=== PATIENT | female | born 1990 ===

== ENCOUNTER 2016-10-30 20:52 | Emergency (ER) | payer OTHER, SELFPAY ==
[2016-10-30 21:34] VITALS: BMI 31.6
[2016-10-30 21:53] LABS: RBC URINE 1 /hpf (0-3); URINE BACTERIA RARE (<OCC); URINE BILIRUBIN NEGATIVE (NEGATIVE); URINE BLOOD SMALL (NEGATIVE); URINE COLOR COLORLESS (YELLOW); URINE GLUCOSE (UA) NEG (Normal); URINE KETONE NEGATIVE (NEGATIVE); URINE LEUKOCYTE ESTERASE NEG Leu/uL (Negative); URINE PROTEIN NEGATIVE (NEGATIVE); URINE UROBILINOGEN 0.2-1.0 mg/dL (0.2-1.0); WBC URINE 1 /hpf (0-5)
--- NOTE | 2016-10-31 00:22 | OBHP ---
Datetime: 10/30/2016 21:35 IP Adm Impression: , intrauterine ; No Active Labor IP Admit Plan: Observation/Evaluation Admit Comment, IP Provider: 26 y/o @ 23.5 weeks presents with vaginal spotting. Pt reports one episode of light spotting around 19:00 today that has since subsided. Denies sexual activity or incit ing events. Associated with mild (3/10) suprapubic pain without urinary symptoms. No other complaints . Denies LOF/CTX and reports +FM. Denies fever/chills, headaches, visual disturbances, CP/SOB, back p ain, N/V/D/C, urinary symptoms. PMD: [facility] (next appt 11/06) : immigrated 1 week ago to [place], recieved care in [place]. POBhx: 1 SAB in 2015, unknown GA, uncomplicated PsurgHx: none PMHx: none Meds: PNVs Social: denies ETOH, Tobacco, drug use A/P: 26 y/o @ 23.5 weeks IUP, possible UTI. -pelvic exam unremarkable as per Dr. Cohen, no active bleeding -UA -case discussed and pt seen with Dr. Noel Gage MD PGY1 @ 21:[address] Cohen: I have evaluated the patient independently and I agree with the above. The patient is a @ 23.5 wks with vaginal spotting, no leaking, +FM, no ctxns. Fhr+ 150s, irritabi lity, on speculum exam no vaginal blood in the vault, UA negative. Patient discharged home, no eviden ce of labor. Labor precautions given, f/u in clinic at next appt Pelvic Type - PN: Adequate Extremities - PN: Normal Abdomen - PN: Normal Back - PN: Normal Breast - PN: Normal Lungs - PN: Normal Heart - PN: Normal Thyroid - PN: Normal Neurologic - PN: Normal HEENT - PN: Normal General - PN: Normal FHR - Baseline A Provider: 150 Membranes, Provider: Intact Contraction Comments Provider: no Comments, ACOG Physical Exam: pelvic: cervix closed, no active bleeding Vital Signs Provider: Reviewed; Within Normal Limits IP Chief Complaint: Vaginal bleeding Dilatation, Provider: 0 Effacement, Provider: 0 Genitourinary Exam: Normal DTRs - PN: Normal
--- NOTE | 2016-10-31 00:30 | OBDCSUM ---
Datetime: 10/30/2016 22:10 Discharged to, Provider: Home Follow up at, Provider: clinic on 11/06 Disch Instr Activity: Normal activity Disch Instr Diet: Regular Discharge Diet restrict Prov: rest in betwween Discharge Instructions, Provider: Routine instructions given Discharge Time: 10/30/2016 22:11 Follow up in weeks, Provider: as scheduled Disch Referrals: None Disch Activity Restrictions: No lifting; Minimize stair-climbing; No sexual activity; Nothing in vag jaime - [place], tampons, douche Discharge Diagnosis Prov Other: false labor
== END 2016-10-30 22:35 | disposition home or self-care (01) ==
LOC: H.EROB2 20:52
DX: O47.02 False labor before 37 completed weeks of gestation, second trimester (principal); Z3A.23 23 weeks gestation of pregnancy

== ENCOUNTER 2017-01-03 10:50 | Emergency (ER) | payer SELFPAY ==
--- NOTE | 2017-01-05 08:48 | OBHP ---
Datetime: 01/03/2017 11:17 IP Adm Impression: , intrauterine IP Admit Plan: Observation/Evaluation Admit Comment, IP Provider: 26 y/o @ 33.0 weeks presents with 5 day history of RUQ pain. Pt denies inciting event. Pain started gradually. It is intermittent, 5/10, nonradiating, alleviated wit h lying down and exacerbated with prolonged ambulation. No medication attempted. No association with meal consumption. Denies fever/chills, N/V/D/C, epigastric pain, headaches, changes in vision, CP/SOB /Palpitations. Denies VB/LOF/CTX and reports good FM. ROS: negative PMD: [facility] POBhx: 1 SAB in 2015, unknown GA, uncomplicated PsurgHx: none PMHx: none Meds: PNVs Social: denies ETOH, Tobacco, drug use PE: as above A/P: 26 y/o @ 33.0 weeks with RUQ pain -annabelle [place] in [place] -pt to have NST pt seen and case discussed with Dr. Cohen Addendum by Dr. Cohen: Patient evalauted independently and I agree with the above. Patient is a @ 33.0 wks with pain along lower rib cage. No vaginal bleedig, no ctxns, no leaking, +FM, pain is reproducible on deep palpation. Patient denies fever, N/V, diarrehea. FHR= 145 mod dorita, +accels, n o decels. TOCO = occasional contractions. Patient does not appear to be in labor or have signs of cho enma. Patient dishcarged home with labor precautions, pain most likjerrod costocondritis Pelvic Type - PN: Adequate Extremities - PN: Normal Abdomen - PN: Normal Back - PN: Normal Breast - PN: Normal Lungs - PN: Normal Heart - PN: Normal Thyroid - PN: Normal Neurologic - PN: Normal HEENT - PN: Normal General - PN: Normal FHR - Baseline A Provider: 145 Comments, ACOG Physical Exam: Eyes: sclera non-icteric, conjuctiva clear CVS: RRR, S1S2, no MRG LUNGS: CTA B/L, good air entry, No WRR Abd: +BS, soft, ND. no guarding/rigidity. Lam's negative. reproducible tenderness along right 1 2th rib. L ext: no pedal edema. EGA AdmitDate IP: 33.0 IP Chief Complaint: Other NICHD Variability Prov Fetus A: Moderate 6-25bpm NICHD Decel Fetus A IP Provider: None Genitourinary Exam: Normal DTRs - PN: Normal
[2017-01-05 12:48] VITALS: BP 120/81; PULSE 89; RESP 18; TEMP 98; O2SAT 100
== END 2017-01-03 15:24 | disposition home or self-care (01) ==
LOC: H.EROB2 10:50
DX: O26.893 Other specified pregnancy related conditions, third trimester (principal); R10.11 Right upper quadrant pain; R07.81 Pleurodynia; Z3A.33 33 weeks gestation of pregnancy

== ENCOUNTER 2017-02-11 05:21 | Inpatient (IN) | payer MEDICAID ==
[2017-02-11 07:32] VITALS: BMI 33.7
[2017-02-11] MEDS ORDERED: Lactated Ringer's 1,000 ML IV SCH (07:45)
[2017-02-11 10:57] LABS: ALKALINE PHOSPHATASE 185 U/L (38-126); ALT/SGPT 19 U/L (9-52); AST/SGOT 28 U/L (14-36); BILIRUBIN,TOTAL 0.6 mg/dl (0.2-1.3); BLOOD UREA NITROGEN 7 mg/dl (7-17); CALCIUM 10.1 mg/dL (8.4-10.2); CARBON DIOXIDE 19 mmol/L (22-30); CHLORIDE 108 mmol/L (98-107); GFR AFRICAN-AMERICAN > 60; GLUCOSE,RANDOM 93 mg/dL (65-105); POTASSIUM 4.5 MMOL/L (3.6-5.0); SODIUM 136 mmol/l (132-148); TOTAL PROTEIN 7.4 G/DL (6.3-8.2); URIC ACID 5.1 mg/Dl (2.2-7.5)
[2017-02-11 11:05] LABS: PARTIAL THROMBOPLASTIN TIME 26.6 Seconds (25.6-37.1)
[2017-02-11 11:18] VITALS: RESP 20; O2SAT 100
[2017-02-11] MEDS ORDERED: Oxytocin 30 units/LR 500ML 30 U/500 ML BAG IV ONE (12:21)
[2017-02-11 12:38] LABS: BASO # 0.1 K/uL (0.0-0.2); BASO % 0.5 % (0.0-2.0); EOS # 0.3 K/uL (0.0-0.7); EOS % 1.8 % (0.0-4.0); HEMATOCRIT 40.6 % (34.0-47.0); LYMPH # 2.3 K/uL (1.0-4.3); LYMPH % 14.4 % (20.0-40.0); MEAN CELL VOLUME 83.2 fl (81.0-99.0); MEAN CORPUSCULAR HEMOGLOBIN 27.2 pg (27.0-31.0); MEAN CORPUSCULAR HGB CONC 32.8 g/dL (33.0-37.0); MEAN PLATELET VOLUME 8.6 fl (7.2-11.7); MONO # 0.7 K/uL (0.0-0.8); MONO % 4.3 % (0.0-10.0); NEUT # 12.8 K/uL (1.8-7.0); NRBC % 0.1 % (0.0-0.0); RED CELL DISTRIBUTION WIDTH 16.5 % (11.5-14.5); WHITE BLOOD COUNT 16.2 K/uL (4.8-10.8)
[2017-02-11] MEDS ORDERED: Lidocaine 2% Inj (20ml) ONE (15:06)
[2017-02-11] MEDS ORDERED: Oxycodone/Acetaminophen 5/325 mg Tab PO PRN (16:16)
[2017-02-11] MEDS: Oxycodone/Acetaminophen 5/325 mg Tab PO PRN (18:22)
[2017-02-11] MEDS: Benzocaine/Menthol SPRAY TOP PRN (20:50)
[2017-02-12 07:18] LABS: HEMATOCRIT 35.2 % (34.0-47.0); MEAN CELL VOLUME 83.5 fl (81.0-99.0); MEAN CORPUSCULAR HEMOGLOBIN 27.7 pg (27.0-31.0); MEAN CORPUSCULAR HGB CONC 33.1 g/dL (33.0-37.0); RED CELL DISTRIBUTION WIDTH 15.6 % (11.5-14.5); WHITE BLOOD COUNT 17.4 K/uL (4.8-10.8)
--- NOTE | 2017-02-12 07:20 | OBPPN ---
Datetime: 02/12/2017 05:25 PP Pain Prov: Within normal limits PP Nausea Prov: Denies PP Flatus Prov: No PP BM Prov: No PP Breasts Prov: Not Done PP Heart Prov: Normal PP Lungs Prov: Normal PP Abdomen/Uterus Prov: Normal PP Lochia Prov: Normal PP Vulva/Perineum Prov: Normal PP CVA Tenderness Prov: Not Done PP Extremities Prov: Normal PP C/S Incision Prov: Not Applicable PP Progress Prov: Normal PP Impression Prov: Normal progression PP Plan Prov: Continue present management PP Progress Note Prov: S: 27 yo s/p NVD on 02/11/2017 at 15:12. Pt is seen and examined at [facility] this morning. No overnight events. Pt reports occasional abdominal pain, but well controlled wi th pain meds. Pt is ambulating without any difficulties. Breast feeding baby. Tolerating PO diet. Loc hia is similar to menses in volume. Voiding freely, no BM or gases yet. Denies fever/chills, diarrhea , nausea/vomiting, chest pain, dyspnea, and dizziness. O: VS: stable Gen: NAD Cardio: + s1s2, no M/G/R Resp: clear breath sounds b/l Abd: BS+, NT, Uterus is firm and at the level of the umbilicus. Ext: No edema, calves nontender Neuro/psychi: AAOx3, no grossly focal deficit, preserved affect and mood. Assessment/Plan: 23 yo s/p NVD on 02/11/17 at 15:12 doing well on PPD 1. OOB with caution. SCDs for DVT prophylaxis, pt ambulating Ibuprofen 600mg for pain. Colace 100mg PO BID for constipation. Encourage . F/U CBC post-delivery [place] PGY 1 OB Hospitalist Addendum: PPD 1 s/p , doing well, breast feeding Continue current management (ES) IP PP Procedures: None Vital Signs Provider PP: Reviewed
--- NOTE | 2017-02-12 08:58 | OBDS ---
DELIVERY PERSONNEL Delivery Doctor: Carito Sparrow MD MATERNAL INFORMATION Delivery Anesthesia: Local Medications in Delivery: pitocin Estimated Blood Loss (ml): 300 Placenta Cultured: No Maternal Complications: None Provider Comments: Normal spontaneous vaginal delivery. Patient delivered viable male with Apgars of 9 and 9 at one and 5 minutes respectively. Vikash centa delivered spontaneously. Laceration repaired, as above. Uterus firm and appropriately hemostati c following delivery. Patient tolerated delivery and repair well. No complications. Estimated blood l oss 300 mL. LABOR SUMMARY EDC: 02/21/2017 00:00 No. Babies in Womb: 1 Attempted: No Labor Anesthesia: None LABOR INFORMATION Onset of Labor: 02/11/2017 04:30 Complete Dilatation: 02/11/2017 14:50 Oxytocin: Augmentation Group B Beta Strep: Negative Steroids Given: None Reason Steroids Not Administered: Not Applicable MEMBRANES Membranes Rupture Method: Spontaneous Rupture of Membranes: 02/11/2017 04:30 Length of Rupture (hrs): 10.70 Amniotic Fluid Color: Clear Amniotic Fluid Amount: Small Amniotic Fluid Odor: Normal STAGES OF LABOR Stage 1 hrs: 10 Stage 1 min: 20 Stage 2 hrs: 0 Stage 2 min: 22 Stage 3 hrs: 0 Stage 3 min: 5 Total Time in Labor hrs: 10 Total Time in Labor min: 47 VAGINAL DELIVERY Episiotomy: None Laceration Extension: Second Degree Laceration Type: Vaginal Laceration Repair Note: Second-degree midline perineal laceration. Area infiltrated with 1% lidocain e. Laceration repaired with 2. 0 repeat without complication. Patient tolerated repair well. Initial Vag Sponge Count: 15 Final Vag Sponge Count: 15 Initial Vag Sharps Count: 4 Final Vag Sharps Count: 4 Sponge Count Correct: Yes Sharps Count Correct: Yes BABY A INFORMATION Delivery Date/Time: 02/11/2017 15:12 Method of Delivery: Vaginal Born in Route : Yes : N/A Forceps: N/A Vacuum Extraction: N/A Shoulder Dystocia : No SHOULDER DYSTOCIA BABY A Delivery Date/Time: 02/11/2017 15:12 PRESENTATION/POSITION BABY A Presentation: Cephalic Cephalic Presentation: Vertex Vertex Position: Left Occipital Anterior Breech Presentation: N/A PLACENTA INFORMATION BABY A Placenta Delivery Time : 02/11/2017 15:17 Placenta Method of Delivery: Spontaneous Placenta Status: Delivered SCORES BABY A Heart Rate 1 min: >100 bpm Resp Effort 1 min: Good Cry Reflex Irritability 1 min: Cough or Sneeze or Pulls Away Muscle Tone 1 min: Active Motion Color 1 min: Body [place], Extremities Blue SCORE 1 MIN: 9 Heart Rate 5 min: >100 bpm Resp Effort 5 min: Good Cry Reflex Irritability 5 min: Cough or Sneeze or Pulls Away Muscle Tone 5 min: Active Motion Color 5 min: Body [place], Extremities Blue Resuscitation Effort 5 min: Tactile Stimulation SCORE 5 MIN: 9 Heart Rate 10 min: >100 bpm Resp Effort 10 min: Good Cry Reflex Irritability 10 min: Cough or Sneeze or Pulls Away Muscle Tone 10 min: Active Motion Color 10 min: Completely [place] Resuscitation Effort 10 min: Tactile Stimulation SCORE 10 MIN: 10 INFANT INFORMATION BABY A Gestational Age at Delivery: 38+ Gestational Status: Term Infant Outcome : Liveborn Condition : Stable Infant Sex: Male IDENTIFICATION/MEDS BABY A ID Band Number: [id number] ID Band Location: Left Leg; Left Arm WEIGHT/LENGTH BABY A Infant Birthweight (gms): 3205 Infant Weight (lb): 7 Weight (oz): 1 Length Inches: 19.50 Infant Length cms: 49.5 CORD INFORMATION BABY A No. Cord Vessels: 3 Nuchal Cord : N/A Nuchal Cord Other: none True Knot: none Cord pH Baby Arterial: no Cord pH Baby Venous: no Cord Blood Taken: Yes Banking/Donate Info: no Suction: Mouth; Nose ASSESSMENT BABY A Infant Complications: None Physical Findings at Delivery: Within Normal Limits Infant Respirations: Appears Normal Reed Worker/ALS Called : No Infant Care By: marie delgado / Daisha Dawson RESUSCITATION BABY A Resuscitation Effort: Tactile Stimulation
[2017-02-12] MEDS ORDERED: Influenza Vaccine 18yr & older 0.5 ML/45 MCG SYR IM ONE (09:00)
[2017-02-12] MEDS: Prenatal Multivit/Folic Acid/Iron Tab PO SCH (17:38)
[2017-02-12] MEDS: Multivitamin With Minerals Tab PO SCH (17:38)
[2017-02-12] MEDS: Oxycodone/Acetaminophen 5/325 mg Tab PO PRN (19:25)
[2017-02-13] MEDS: Oxycodone/Acetaminophen 5/325 mg Tab PO PRN (02:18)
[2017-02-13] MEDS: Multivitamin With Minerals Tab PO SCH (08:59)
[2017-02-13] MEDS: Prenatal Multivit/Folic Acid/Iron Tab PO SCH (08:59)
[2017-02-13] MEDS: Benzocaine/Menthol SPRAY TOP PRN (08:59)
--- NOTE | 2017-02-13 10:30 | OBPPN ---
Datetime: 02/13/2017 05:58 PP Pain Prov: Within normal limits PP Nausea Prov: Denies PP Flatus Prov: Yes PP BM Prov: No PP Breasts Prov: Normal PP Heart Prov: Normal PP Lungs Prov: Normal PP Abdomen/Uterus Prov: Normal PP Lochia Prov: Normal PP Vulva/Perineum Prov: Not Done PP CVA Tenderness Prov: Normal PP Extremities Prov: Normal PP C/S Incision Prov: Not Applicable PP Progress Prov: Normal PP Comments Phys Exam Prov: nonengorged breast PP Impression Prov: Normal progression PP Plan Prov: Continue present management; Discharge PP Progress Note Prov: 27 y/o now seen and examined at bedside. Patient had uneventful overnig ht. Patient reports mild pelvic pain controlled w/ pain meds. OOB/Ambulating w/o dizziness. Breast /bottle feeding w/o difficulty. Tolerating PO diet well. Lochia is less than menses in volume. Voi ding freely w/ no blood noted. Reports no bowel movement. Denies fevers, chills, n/v/d, CP/SOB, lig htheadedness and calf pain. PE: GEN: A_O, resting comfortably in bed, NAD Lung: CTA B/L, no wheezing, rhonchi, or rales CVS: S1, S2 wnl, RRR Abd: +BS, firm fundus below umbilicus. EXT: no edema, negative Liana's, calves non-tender Assessment: 27 y/o now s/p on 02/11/2017 @ 15:12 tolerating pain w/ medication, tolerati ng oral intake, adequate urine output, doing well on PPD2. Plan: Percocet 5/325 mg 1-2 tabs PO Q6h prn for mod/severe pain. Ibuprofen 600 mg 1 tab Q6h PO pr n for mild pain. Encourage breast feeding and ambulation. D/C today 02/13/2017 Edison Reyes M.D. [employer] Cashier PGY-1 [facility] ADDENDUM: pt seen _ examined by me. Agree with above assessment and plan. continue pnv IP PP Procedures: None Vital Signs Provider PP: Reviewed; Within Normal Limits
--- NOTE | 2017-02-13 10:30 | OBDCSUM ---
Datetime: 02/13/2017 06:01 Discharged to, Provider: Home Follow up at, Provider: [facility] Disch Instr Activity: Normal activity Disch Instr Diet: Regular Discharge Instructions, Provider: Routine instructions given Discharge Diagnosis, Provider: Term Delivered Discharge Time: 02/13/2017 12:00 Follow up in weeks, Provider: 6 weeks Disch Referrals: None Contraception discussed, Prov: Yes Disch Activity Restrictions: No sexual activity; Nothing in vagina - [place], tampons, douche Discharge Comment, Provider: 27 y/o now @ 38.0 wks had uncomplicated at term w/ no risk factors Delivered baby boy on 02/11/2017 @15:12, 3205 g, : 9,9 Encourage PNV 1 tab PO once daily Ibuprofen 600 mg 1 tab PO Q6h prn for moderate pain Senokot 17.2 mg PO tab QHS nothing in vagina, if excessive bleeding or fever without relief from Tylenol go to ED F/U w/ [facility] in 6 weeks Edison Reyes M.D. [employer] Operator PGY-1 Contraception after Delivery: Foam/Condoms
[2017-02-13 16:30] VITALS: BP 126/75; PULSE 99; TEMP 98.6
== END 2017-02-13 12:20 | disposition home or self-care (01) | DRG 373 ==
LOC: H.EROB2 05:21 → H.L&D 07:44 → H.OB/GYN 18:00
PROVIDERS: ADMIT Obstetrics & Gynecology; ATTEND Obstetrics & Gynecology
PROC: 0KQM0ZZ Repair Perineum Muscle, Open Approach (ICD-10-PCS; principal; 2017-02-11)
PROC: 10E0XZZ Delivery of Products of Conception, External Approach (ICD-10-PCS; 2017-02-11)
PROC: 4A1HXCZ Monitoring of Products of Conception, Cardiac Rate, External Approach (ICD-10-PCS; 2017-02-11)
DX: O70.1 Second degree perineal laceration during delivery (principal); Z37.0 Single live birth; Z3A.38 38 weeks gestation of pregnancy